=== PATIENT | female | born 1950 | race Caucasian/White ===

== ENCOUNTER 2016-12-28 10:54 | Outpatient (CLI) | payer MEDICARE ==
--- NOTE | 2016-12-29 17:11 | Mammography Report ---
DIGITAL SCREENING MAMMOGRAM: 12/28/2016 CLINICAL INDICATION: A 66-year-old with history of late childbearing for screening. COMPARISON: 12/2015, 12/2014, 11/2013, 11/2012, 01/2011, 09/2009. TECHNIQUE: Routine CC and MLO projections were obtained of the breasts. FINDINGS: Scattered fibroglandular tissue is present within the breasts. There are no dominant mass es, suspicious microcalcifications, or secondary signs of malignancy. In comparison to the previous studies, there are no significant changes. ASSESSMENT: NO MAMMOGRAPHIC EVIDENCE OF MALIGNANCY. NO SIGNIFICANT INTERVAL CHANGES. RECOMMENDATION: Screening mammography is recommended annually. BIRADS category 1 - negative. STANDARD QUALIFYING STATEMENTS 1. This examination was reviewed with the aid of Computed-Aided Detection (CAD). 2. A negative or benign imaging report should not delay biopsy if clinically suspicious findings are present. Consider surgical consultation if warranted. More than 5% of cancers are not identified b y imaging. 3. Dense breasts may obscure an underlying neoplasm. JOB #: [id number] EXT JOB #:[id number]
== END 2016-12-28 10:55 | disposition home or self-care (01) ==
LOC: DI 10:54
PROVIDERS: ATTEND Internal Medicine
DX: Z12.31 Encounter for screening mammogram for malignant neoplasm of breast (principal)
CPT/HCPCS: 77067

== ENCOUNTER 2018-01-18 11:43 | Outpatient (CLI) | payer MEDICARE ==
--- NOTE | 2018-01-18 17:11 | XRAY Report ---
Reason: R FINGER PAIN Procedure Date: 01/18/2018 Accession Number: [id number] / [id number] Procedure: XR - Finger(s) RT CPT Code: FULL RESULT: EXAM: RIGHT FIFTH FINGER DIGIT RADIOGRAPHY EXAM DATE: 01/18/2018 11:55 AM. CLINICAL HISTORY: R FINGER PAIN. No known injury. Fifth finger DIP joint pain. COMPARISON: None. TECHNIQUE: 3 views. FINDINGS: Bones: Normal. No fracture or bone lesion. Joints: Mild right proximal interphalangeal joint space narrowing. Mild to moderate right distal interphalangeal joint space narrowing with marginal osteophytes. Thin, elongated erosive changes along ulnar base of distal phalanx. Soft Tissues: Normal. No soft tissue swelling. IMPRESSION: 1. Osteoarthritic changes. Elongated erosive changes along ulnar base of right fifth finger distal phalanx could be related to subchondral cysts or erosive osteoarthritis. RADIA
== END 2018-01-18 11:44 | disposition home or self-care (01) ==
LOC: DI 11:43
PROVIDERS: ATTEND Internal Medicine
DX: M19.041 Primary osteoarthritis, right hand (principal)
CPT/HCPCS: 73140

== ENCOUNTER 2018-02-01 11:55 | Outpatient (CLI) | payer MEDICARE ==
--- NOTE | 2018-02-02 12:24 | Mammography Report ---
Reason: ANNUAL SCREENING Procedure Date: 02/01/2018 Accession Number: [id number] / [id number] Procedure: IRIS - Screening Mammo w/Richard CPT Code: FULL RESULT: EXAM: Screening Mammo w/Richard DATE: 02/01/2018 1:18 PM CLINICAL HISTORY: 67-year-old female with history of late childbearing and family history of breast cancer in an aunt at age 70 and a cousin at age 27 for screening. TECHNIQUE: Bilateral CC and MLO views were obtained. COMPARISON: 01/27/2017, 12/24/2015, 12/26/2014, 12/12/2013. FINDINGS: The breasts demonstrate scattered fibroglandular densities bilaterally. There are coarse typically benign calcifications in the left breast. No suspicious masses, clustered microcalcifications, or regions of architectural distortion are identified. IMPRESSION: Benign findings RECOMMENDATION: Routine annual screening unless otherwise clinically indicated. BIRADS CATEGORY 2: Benign findings STANDARD QUALIFYING STATEMENTS: 1. This examination was not reviewed with the aid of Computer-Aided Detection (CAD). 2. A negative or benign imaging report should not delay biopsy if clinically suspicious findings are present. Consider surgical consultation if warranted. More than 5% of cancers are not identified by imaging. 3. Dense breasts may obscure an underlying neoplasm. 4. This examination was reviewed with the aid of 3D breast imaging (tomosynthesis).
== END 2018-02-01 11:56 | disposition home or self-care (01) ==
LOC: DI 11:55
PROVIDERS: ATTEND Internal Medicine
DX: Z12.31 Encounter for screening mammogram for malignant neoplasm of breast (principal); Z80.3 Family history of malignant neoplasm of breast
CPT/HCPCS: 77063; 77067

== ENCOUNTER 2019-02-22 08:47 | Outpatient (CLI) | payer MEDICARE ==
--- NOTE | 2019-02-25 11:12 | Mammography Report ---
Reason: ROUTINE MAMMO Procedure Date: 02/22/2019 Accession Number: [id number] / [id number] Procedure: IRIS - Screening Mammo w/Richard CPT Code: Final Report FULL RESULT: EXAM: Screening Mammo w/Richard DATE: 02/22/2019 9:18 AM CLINICAL HISTORY: Screening encounter. History of late childbearing. TECHNIQUE: (B) - Bilateral CC and MLO views were obtained. COMPARISON: 02/01/2018 through 10/07/2009. PARENCHYMAL PATTERN: (A) - The breast(s) demonstrate(s) scattered fibroglandular densities. FINDINGS: There are coarse typically benign calcifications. There are no suspicious masses, calcifications, or areas of distortion. IMPRESSION: Benign findings. BI-RADS category 2. RECOMMENDATION: (ANNUAL) - Recommend routine annual screening mammography. BI-RADS CATEGORY: (2) - Benign Findings. STANDARD QUALIFYING STATEMENTS: 1. This examination was not reviewed with the aid of Computer-Aided Detection (CAD). 2. A negative or benign imaging report should not preclude biopsy if clinically suspicious findings are present. 3. Dense breasts may obscure an underlying neoplasm. 4. This examination was reviewed with the aid of 3D breast imaging (tomosynthesis).
== END 2019-02-22 08:48 | disposition home or self-care (01) ==
LOC: DI 08:47
PROVIDERS: ATTEND Internal Medicine
DX: Z12.31 Encounter for screening mammogram for malignant neoplasm of breast (principal)
CPT/HCPCS: 77063; 77067

== ENCOUNTER 2019-02-22 08:47 | Outpatient (CLI) | payer MEDICARE ==
--- NOTE | 2019-02-25 08:57 | DEXA Report ---
Reason: OSTEOPENIA Procedure Date: 02/22/2019 Accession Number: [id number] / [id number] Procedure: DEX - Dexa Spine and/or Hip CPT Code: Final Report FULL RESULT: EXAM: Dexa Spine and/or Hip DATE: 02/22/2019 9:29 AM CLINICAL HISTORY: OSTEOPENIA TECHNIQUE: Dual energy x-ray absorptiometry (DXA) was performed on a [employer] System. Regions measured are the AP Spine, femoral neck, and if needed forearm. COMPARISON: None. In accordance with the International Society for Clinical Densitometry (ISCD) guidelines, data from previous exams may be reanalyzed using current recommendations and techniques. This is done to allow a more accurate basis for comparison with the current study. FINDINGS: The data for the lumbar spine is as follows: BMD (g/cm/cm) T-SCORE Z-SCORE REGION L1 0.942 -1.6 0.2 L2 1.014 -1.5 0.2 L3 1.077 -1.0 0.7 L4 1.019 -1.5 0.2 TOTAL 1.017 -1.4 0.4 NOTE: All evaluable vertebrae are used for classification The data for the hip is as follows: BMD (g/cm/cm) T-SCORE Z-SCORE REGION Neck 0.677 -2.6 -0.9 TOTAL 0.742 -2.1 -0.6 NOTE: The femoral neck or total proximal femur, whichever is lowest, is used for classification. IMPRESSION: THE WHO CLASSIFICATION BASED ON THE INTERNATIONAL REFERENCE STANDARD IS OSTEOPOROSIS. THE FRACTURE RISK IS HIGH. RECOMMENDATION: Patients with diagnosis of osteoporosis or osteopenia should have regular bone mineral density assessment. For those eligible for Medicare, routine testing is allowed once every 2 years. Testing frequency can be increased for patients who have rapidly progressing disease or for those who are receiving medical therapy to restore bone mass. COMMENT: World Health Organization (WHO) definitions for osteoporosis and osteopenia: NORMAL BMD: T-score at -1.0 or higher, fracture risk is low OSTEOPENIA BMD: T-score between -1.0 and -2.5, fracture risk is increased. OSTEOPOROSIS BMD: T-score at -2.5 or lower, fracture risk is high. National Osteoporosis Foundation recommends: 1. Obtain adequate dietary calcium (at least 1200 mg per day) and vitamin D (400-800 international units per day). 2. Participate, as appropriate, in regular weightbearing and muscle-strengthening exercise. 3. Avoid tobacco use and reduce alcohol and caffeine intake. 4. For more detailed information see the website at www.NOF.org.
== END 2019-02-22 08:48 | disposition home or self-care (01) ==
LOC: DI 08:47
PROVIDERS: ATTEND Internal Medicine
DX: M81.0 Age-related osteoporosis without current pathological fracture (principal)
CPT/HCPCS: 77080

== ENCOUNTER 2020-05-06 12:33 | Outpatient (CLI) | payer MEDICARE ==
--- NOTE | 2020-05-07 06:25 | Mammography Report ---
BILATERAL DIGITAL SCREENING MAMMOGRAM 3D/2D: 05/06/2020 CLINICAL: Routine screening. Comparison is made to exams dated: 02/22/2019 mammogram, 02/01/2018 mammogram, and 12/28/2016 mammogr am - [facility]. There are scattered fibroglandular elements in both breasts. No significant masses, calcifications, or other findings are seen in either breast. There has been no significant interval change. IMPRESSION: NEGATIVE There is no mammographic evidence of malignancy. A 1 year screening mammogram is recommended. This exam was interpreted at Station ID: [id number]. NOTE: For mammograms, a report in lay terms will be sent to the patient. Approximately 15% of breast malignancies will not be visualized mammographically. In the management of a palpable breast mass, a negative mammogram must not discourage biopsy of a clinically suspicious lesion. Electronically Signed By: Berry Hardin M.D. ar/penrad:05/06/2020 15:50:42 ACR BI-RADS Category 1: Negative 3341F PARENCHYMAL PATTERN: (A) - The breast(s) demonstrate(s) scattered fibroglandular densities. BI-RADS CATEGORY: (1) - 1 RECOMMENDATION: (ANNUAL) - Recommend routine annual screening mammography. [id number] 1 year screening LATERALITY: (B)
== END 2020-05-06 12:34 | disposition home or self-care (01) ==
LOC: DI 12:33
PROVIDERS: ATTEND Internal Medicine
DX: Z12.31 Encounter for screening mammogram for malignant neoplasm of breast (principal)

== ENCOUNTER 2021-04-08 12:46 | Outpatient (CLI) | payer MEDICARE ==
--- NOTE | 2021-04-08 15:38 | DEXA Report ---
PROCEDURE: Dexa Spine and/or Hip INDICATIONS: OSTEOPOROSIS TECHNIQUE: Dual energy x-ray absorptiometry (DXA) was performed on a [employer] System. Regions measur ed are the AP Spine, femoral neck, and if needed forearm. COMPARISON: DEXA 02/22/2019 FINDINGS: Lumbar Spine: Bone Mineral Density 1.037 g/cm/cm,T score -1.2, compared to -1.4 Left Hip: Bone Mineral Density 0.738 g/cm/cm,T score -2.1, unchanged Left Femoral Neck: Bone Mineral Density 0.687 g/cm/cm, T score -2.5, compared to -2.6 (T score greater or equal to -1.0: NORMAL) (T score from -1.1 to -2.4: OSTEOPENIA) (T score less than or equal to -2.5 to: OSTEOPOROSIS) Impression: Minimal improved appearance of osteoporosis within the left femoral neck with stable mode rate osteopenia in the left hip. Slightly improved minimal osteopenia within the lumbar spine is note d. Patients with diagnosis of osteoporosis or osteopenia should have regular bone mineral density assess ment. For those eligible for Medicare, routine testing is allowed once every 2 years. Testing frequ ency can be increased for patients who have rapidly progressing disease or for those who are receivin g medical therapy to restore bone mass. Reviewed by: Leticia Watts MD on 04/08/2021 3:36 PM PST Approved by: Leticia Watts MD on 04/08/2021 3:36 PM PST Station ID: [id number]
== END 2021-04-08 12:47 | disposition home or self-care (01) ==
LOC: DI 12:46
PROVIDERS: ATTEND Internal Medicine
DX: M81.0 Age-related osteoporosis without current pathological fracture (principal)

== ENCOUNTER 2021-05-25 13:39 | Outpatient (CLI) | payer MEDICARE ==
--- NOTE | 2021-05-26 07:17 | Mammography Report ---
BILATERAL DIGITAL SCREENING MAMMOGRAM 3D/2D: 05/25/2021 CLINICAL: Routine screening. Family history of breast cancer. Comparison is made to exams dated: 05/06/2020 mammogram, 02/22/2019 mammogram, and 02/01/2018 mammogra m - [facility]. There are scattered fibroglandular elements in both breasts. No significant masses, calcifications, or other findings are seen in either breast. There has been no significant interval change. IMPRESSION: NEGATIVE There is no mammographic evidence of malignancy. A 1 year screening mammogram is recommended. This exam was interpreted at Station ID: [id number]. NOTE: For mammograms, a report in lay terms will be sent to the patient. Approximately 15% of breast malignancies will not be visualized mammographically. In the management of a palpable breast mass, a negative mammogram must not discourage biopsy of a clinically suspicious lesion. Electronically Signed By: Gamal Leonard M.D. ddp/penrad:05/25/2021 15:55:27 ACR BI-RADS Category 1: Negative 3341F PARENCHYMAL PATTERN: (A) - The breast(s) demonstrate(s) scattered fibroglandular densities. BI-RADS CATEGORY: (1) - 1 RECOMMENDATION: (ANNUAL) - Recommend routine annual screening mammography. [id number] 1 year screening LATERALITY: (B)
== END 2021-05-25 13:40 | disposition home or self-care (01) ==
LOC: DI.S 13:39
PROVIDERS: ATTEND Internal Medicine
DX: Z12.31 Encounter for screening mammogram for malignant neoplasm of breast (principal); Z80.3 Family history of malignant neoplasm of breast

== ENCOUNTER 2021-09-13 19:07 | Outpatient (CLI) | payer MEDICARE | END 2021-09-13 19:08 | disposition critical access hospital (66) | LOC: EMS 19:07 | DX: S00.11XA Contusion of right eyelid and periocular area, initial encounter (principal); S00.81XA Abrasion of other part of head, initial encounter; S60.416A Abrasion of right little finger, initial encounter; S60.410A Abrasion of right index finger, initial encounter; W01.0XXA Fall on same level from slipping, tripping and stumbling without subsequent striking against object, initial encounter; Y92.59 Other trade areas as the place of occurrence of the external cause | CPT/HCPCS: A0425; A0429 ==

== ENCOUNTER 2021-09-13 19:17 | Emergency (ER) | payer MEDICARE ==
--- NOTE | 2021-09-13 19:49 | ED Physician Documentation ---
PD HPI HEADACHE - Stated complaint Stated Complaint: GLF/CHEEK ABRASION - Chief complaint Chief Complaint: Trauma Hd/Nk - History obtained from History obtained from: Patient - Additional information Additional information: 71-year-old woman tripped in a parking lot and fell and hit her face. She has a significant headache which she describes as severe but no loss of consciousness. No anticoagulation. She has some scrapes on the right hand and face as well. Review of Systems Constitutional: denies: Fever, Chills Throat: reports: Dental pain / toothache. denies: Sore throat Cardiac: denies: Chest pain / pressure, Palpitations Respiratory: denies: Dyspnea, Cough PD PAST MEDICAL HISTORY - Present Medications Home Medications: Ambulatory Orders Medication Instructions Recorded Confirmed HYDROcod/ACETAM 5/325 [Howell 5/325] 1 - 2 tab PO Q6H PRN #15 tablet 09/13/21 - Allergies Allergies/Adverse Reactions: Allergies Allergy/AdvReac Type Severity Reaction Status Date / Time No Known Drug Allergies Allergy Verified 09/13/21 19:21 PD ED PE NORMAL - Vitals Vital signs reviewed: Yes - General General: Alert and oriented X 3, No acute distress - HEENT HEENT: PERRL, EOMI, Other (Teeth and facial bony structures are nontender, she is swollen with shallow abrasion over the right cheek and right supraorbital area laterally.) - Neck Neck: Supple, no meningeal sign, No bony TTP, C-Spine cleared by NEXUS criteria - Cardiac Cardiac: RRR, No murmur - Respiratory Respiratory: No respiratory distress, Clear bilaterally - Abdomen Abdomen: Non tender - Extremities Extremities: No tenderness to palpate, Normal ROM s pain, No edema, No calf tenderness / cord, Other (Right shoulder is nontender as is her right hand. She has an abrasion over the dorsum of the right fifth MCP that is nontender.) - Neuro Neuro: Alert and oriented X 3, Normal speech Eye Opening: Spontaneous Motor: Obeys Commands Verbal: Oriented GCS Score: 15 Results - Vitals Vitals: Vital Signs - 24 hr 09/13/21 09/13/21 19:21 21:55 Temperature 36.5 C 36.5 C Heart Rate 83 80 Respiratory 16 16 Rate Blood Pressure 150/80 H 138/80 H O2 Saturation 98 98 Oxygen O2 Source Room air - Rads (name of study) CT of the head and face: No intracranial hemorrhage injury, facial fractures as described in report. Radiology: Discussed with JIM sarkar read contemporaneously PD MEDICAL DECISION MAKING - ED course ED course: 71-year-old woman presents after a fall and has facial fractures and concern for head injury. No findings of head injury on CT. For the facial fractures, I do not think these will be operative but certainly nothing that needs urgent intervention. She was given nasal precautions and will follow up with OMFS. Departure - Departure Disposition: 01 Home, Self Care Clinical Impression: Facial fracture Condition: Good Record reviewed to determine appropriate education?: Yes Instructions: ED Fx Face Follow-Up: Franck Latham DDS [Provider Admit Priv/Credential] - Prescriptions: HYDROcod/ACETAM 5/325 [Howell 5/325] 1 - 2 tab PO Q6H PRN #15 tablet PRN Reason: Pain Comments: I sent your prescription electronically to [facility]. Follow-up with the facial surgeon with the copy of the CAT scan on CD., Call his office for an appointment tomorrow. I am prescribing a short course of narcotic pain medication for you. These are potentially dangerous and addictive medications that should be used carefully. These medications may constipate you. Take an huat-wqm-ewtqpmw stool softener (docusate) twice daily with plenty of water while taking these medications. If you go 24 hours without a bowel movement, take tzll-trx-isrwlxu miralax, per package instructions. Do not drink or drive while taking these medications. If you received narcotic or sedating medications while in the emergency department, do not drive for 24 hours. Store this medication in a safe, secure place and out of reach of children. It is a violation of federal law to give or sell this medication to another person or to use in a manner other than prescribed. The ED will not refill narcotic prescriptions, including prescriptions lost or stolen. To dispose of unwanted medications: 1. [facility] [address] in [place] has a medication drop box. They accept prescription medications (in pill form) Monday through Monday 9:00 a.m. to 5:00 p.m. 2. The [facility] [employer] accepts prescription medications (in pill form only) for disposal year round. Call for more inf ormation. 3. Contact the [facility] for the next [facility] sponsored prescription drug collection event. , [phone], or [phone]; Note that many narcotic pain relievers also contain Tylenol/acetaminophen. Please ensure that your total dose of acetaminophen from all sources does not exceed 3 g (3000 mg) per day. Discharge Date/Time: 09/13/21 21:55
[2021-09-13] MEDS ORDERED: HYDROcod/ACETAM 5/325 MG TABLET PO STA (19:50)
--- NOTE | 2021-09-13 20:29 | CT Report ---
PROCEDURE: HEAD WO INDICATIONS: head inj TECHNIQUE: Noncontrast 4.5 mm thick angled axial sections acquired from the foramen magnum to the vertex. For r adiation dose reduction, the following was used: automated exposure control, adjustment of mA and/or kV according to patient size. COMPARISON: None. FINDINGS: Image quality: Excellent. CSF spaces: There is mild cerebral volume loss with prominence of the ventricles and sulci. Basal ci sterns are patent. No extra-axial fluid collections. Brain: No intracranial hemorrhage, mass, or mass effect. Maguire-white matter interface is preserved. T here are subcortical and periventricular white matter hypodensities consistent with mild chronic smal l vessel ischemic changes. Skull and face: Calvarium appears intact. There is a suspected mildly displaced fracture of the inf erior wall the right orbit. There is also a suspected mildly displaced fracture of the lateral wall t he right maxillary sinus. Right periorbital soft tissue swelling is present. The globes appear intact . Sinuses: Visualized sinuses demonstrate a small air-fluid level in the right maxillary sinus. There is also mild mucosal thickening in the right maxillary sinus. Mastoid air cells are clear. IMPRESSION: 1. No acute intracranial abnormality. 2. Right periorbital soft tissue swelling with suspected mildly displaced fracture of the inferior or bital wall. Recommend further evaluation with a facial bone CT. Findings discussed Dr. Dempsey on 09/13/2021 at 8:23 PM. Reviewed by: Gamal Baxter MD on 09/13/2021 8:27 PM PDT Approved by: Gamal Baxter MD on 09/13/2021 8:27 PM PDT Station ID: [id number]
[2021-09-13] MEDS ORDERED: HYDROcod/ACET 5/325 Prepack 4 PO STA (21:38)
--- NOTE | 2021-09-13 21:51 | CT Report ---
PROCEDURE: MAXILLOFACIAL WO INDICATIONS: facial injry, abn head ct TECHNIQUE: Noncontrast 1.5 mm thick axial images acquired from the mandible through the frontal sinuses, with co cely and sagittal reformatting. For radiation dose reduction, the following was used: automated ex posure control, adjustment of mA and/or kV according to patient size. COMPARISON: Concurrent head CT 09/13/2021. FINDINGS: Image quality: There is metallic streak artifact from patient's dental hardware limiting evaluation. Bones and teeth: There is a mildly comminuted fracture of the inferior wall of the right orbit anter iorly. Fracture extends to the inferolateral foramen. No evidence of extraocular muscle herniation. T here is also mildly displaced fractures of the right lateral maxillary sinus wall. There is a mildly comminuted fracture of the anterior nasal spine of the maxilla. Nasal bones and sep melida are intact. Visualized portions of the mandible demonstrate no fractures or subluxation. Zygoma tic arches are intact. Pterygoid plates are intact. Visualized portions of the skull base and audit ory canals are intact. Sinuses: There is moderate fluid opacification of the right maxillary sinus with an air-fluid level a s well as mucosal thickening. There is mild mucosal thickening within the ethmoid air cells. Mastoid air cells are aerated. Soft tissues: There is right periorbital soft tissue swelling. The globes appear intact. No retrobulb ar fluid collections within the orbits. Vascular: Visualized vascular structures appear normal in the absence of contrast. IMPRESSION: 1. Mild comminuted right inferior orbital wall fracture. No evidence of extraocular muscle herniation . Fracture involves the infraorbital foramen. 2. Mildly displaced fractures of the lateral wall of the right maxillary sinus. 3. Mildly comminuted fracture of the anterior nasal spine of the maxilla. 4. Air-fluid levels in the right maxillary sinus with partial fluid opacification. Findings discussed with Dr. Dempsey on 09/13/2021 at 9:45 PM. Reviewed by: Gamal Baxter MD on 09/13/2021 9:50 PM PDT Approved by: Gamal Baxter MD on 09/13/2021 9:50 PM PDT Station ID: [id number]
[2021-09-13 21:57] VITALS: BP 138/80
== END 2021-09-13 21:55 | disposition home or self-care (01) ==
LOC: EDUNIT# → ED 19:17
DX: S02.31XA Fracture of orbital floor, right side, initial encounter for closed fracture (principal); S02.841A Fracture of lateral orbital wall, right side, initial encounter for closed fracture; S02.2XXA Fracture of nasal bones, initial encounter for closed fracture; W01.0XXA Fall on same level from slipping, tripping and stumbling without subsequent striking against object, initial encounter; Y92.481 Parking lot as the place of occurrence of the external cause
CPT/HCPCS: 70450; 70486; 99284; A9270

== ENCOUNTER 2022-02-24 10:00 | Outpatient (CLI) | payer MEDICARE ==
--- NOTE | 2022-02-24 16:28 | XRAY Report ---
PROCEDURE: Hand 3 View LT INDICATIONS: LEFT HAND PAIN TECHNIQUE: 3 views of the hand(s) acquired. COMPARISON: Arthritic changes as above. None FINDINGS: Bones: No fractures or dislocations. No suspicious bony lesions. None there is mild diffuse osteop enia. Mild to moderate IP degenerative narrowing. Very minimal periarticular osteophytes. No definiti ve erosions. Radiocarpal narrowing is present. Soft tissues: No suspicious soft tissue calcifications. IMPRESSION: Reviewed by: Leticia Watts MD on 02/24/2022 4:27 PM PST Approved by: Leticia Watts MD on 02/24/2022 4:27 PM PST Station ID: [id number]
== END 2022-02-24 10:01 | disposition home or self-care (01) ==
LOC: DI 10:00
PROVIDERS: ATTEND Physician Assistant Surgical
DX: M19.042 Primary osteoarthritis, left hand (principal)

== ENCOUNTER 2022-03-25 08:00 | Outpatient (CLI) | payer MEDICARE ==
[2022-03-25 16:23] LABS: BASOPHILS # (AUTO) 0.1 10^3/uL (0.0-0.1); BASOPHILS % (AUTO) 0.5 %; EOSINOPHILS # (AUTO) 0.3 10^3/uL (0.0-0.7); EOSINOPHILS % (AUTO) 2.9 %; HCT - HEMATOCRIT 39.8 % (37.0-47.0); HGB - HEMOGLOBIN 12.6 g/dL (12.0-16.0); LYMPHOCYTES # (AUTO) 1.5 10^3/uL (1.5-3.5); LYMPHOCYTES % (AUTO) 13.5 %; MEAN CORPUSCULAR HEMOGLOBIN 28.5 pg (27.0-31.0); MEAN CORPUSCULAR HGB CONC 31.7 g/dL (32.0-36.0); MEAN PLATELET VOLUME 10.1 fL (7.9-10.8); MONOCYTES # (AUTO) 0.9 10^3/uL (0.0-1.0); MONOCYTES % (AUTO) 8.2 %; NEUTROPHILS # (AUTO) 8.1 10^3/uL (1.5-6.6); NEUTROPHILS % (AUTO) 74.5 %; PLT - PLATELET COUNT 313 10^3/uL (130-450); RED BLOOD COUNT 4.42 10^6/uL (4.20-5.40); RED CELL DISTRIBUTION WIDTH 13.5 % (12.0-15.0); WHITE BLOOD COUNT 10.9 x10^3/uL (4.8-10.8)
[2022-03-25 16:57] LABS: ALBUMIN 4.2 g/dL (3.2-5.5); ALBUMIN/GLOBULIN RATIO 1.4 (1.0-2.2); ALKALINE PHOSPHATASE 82 IU/L (42-121); ALT ALANINE AMINOTRANSFERASE 24 IU/L (10-60); AST ASPARTATE AMINOTRANSFERASE 21 IU/L (10-42); BILIRUBIN,TOTAL 0.6 mg/dL (0.2-1.0); BUN - BLOOD UREA NITROGEN 19 mg/dL (6-20); CALCIUM 9.1 mg/dL (8.5-10.3); CARBON DIOXIDE - CO2 28 mmol/L (21-32); CHLORIDE 104 mmol/L (101-111); CHOL/HDL RATIO 3.9 (<4.4); CHOLESTEROL 223 mg/dL; CREATININE 0.8 mg/dL (0.4-1.0); GFR - MDRD 71 (>89); GLUCOSE 100 mg/dL (70-100); HDL CHOLESTEROL 57 mg/dL; LDL CHOLESTEROL,CALCULATED 142 mg/dL; LDL/HDL RATIO 2.5 (<4.4); POTASSIUM 3.7 mmol/L (3.5-5.0); SODIUM 140 mmol/L (135-145); TOTAL PROTEIN 7.2 g/dL (6.7-8.2); TRIGLYCERIDES 120 mg/dL; VLDL CHOLESTEROL 24 mg/dL
== END 2022-03-25 23:59 | disposition home or self-care (01) ==
LOC: LAB.R 08:00
PROVIDERS: ATTEND Internal Medicine
DX: Z00.00 Encounter for general adult medical examination without abnormal findings (principal); R05.1 Acute cough; F41.9 Anxiety disorder, unspecified; H26.9 Unspecified cataract; E55.9 Vitamin D deficiency, unspecified; F32.A Depression, unspecified; E78.5 Hyperlipidemia, unspecified; M19.90 Unspecified osteoarthritis, unspecified site; M81.0 Age-related osteoporosis without current pathological fracture; R00.2 Palpitations
CPT/HCPCS: 80053; 80061; 82306; 83721; 83735; 84443; 85025

== ENCOUNTER 2022-05-24 13:49 | Outpatient (CLI) | payer MEDICARE ==
--- NOTE | 2022-05-24 16:45 | DEXA Report ---
PROCEDURE: Dexa Spine and/or Hip INDICATIONS: OSTEOPOROSIS TECHNIQUE: Dual energy x-ray absorptiometry (DXA) was performed on a [employer] System. Regions measur ed are the AP Spine, femoral neck, and if needed forearm. COMPARISON: DEXA, 04/08/2021. FINDINGS: Lumbar Spine: Bone Mineral Density 1.014 g/cm/cm,T score -1.4, osteopenia Left Femoral Neck: Bone Mineral Density 0.682 g/cm/cm, T score -2.6, osteoporosis Left Hip: Bone Mineral Density 0.738 g/cm/cm,T score -2.1, osteopenia (T score greater or equal to -1.0: NORMAL) (T score from -1.1 to -2.4: OSTEOPENIA) (T score less than or equal to -2.5 to: OSTEOPOROSIS) Impression: 1. Based on WHO criteria, the patient has osteoporosis. 2. Compared to the last exam, the patient's bone mineral density in lumbar spine and left hip are not significantly changed. Patients with diagnosis of osteoporosis or osteopenia should have regular bone mineral density assess ment. For those eligible for Medicare, routine testing is allowed once every 2 years. Testing frequ ency can be increased for patients who have rapidly progressing disease or for those who are receivin g medical therapy to restore bone mass. Reviewed by: Mason Stark MD on 05/24/2022 4:43 PM PST Approved by: Mason Stark MD on 05/24/2022 4:43 PM PST Station ID: [id number]
== END 2022-05-24 13:50 | disposition home or self-care (01) ==
LOC: DI 13:49
PROVIDERS: ATTEND Internal Medicine
DX: M81.0 Age-related osteoporosis without current pathological fracture (principal)

== ENCOUNTER 2022-06-30 10:22 | Outpatient (CLI) | payer MEDICARE ==
--- NOTE | 2022-07-01 09:23 | Mammography Report ---
BILATERAL DIGITAL SCREENING MAMMOGRAM 3D/2D: 06/30/2022 CLINICAL: Routine screening. Family history of breast cancer. Comparison is made to exams dated: 05/25/2021 mammogram, 05/06/2020 mammogram, 02/22/2019 mammogram, and 02/01/2018 mammogram - [facility]. There are scattered areas of fibroglandular density in both breasts (category b / 25%-50% glandular t issue). No significant masses, calcifications, or other findings are seen in either breast. There has been no significant interval change. IMPRESSION: NEGATIVE There is no mammographic evidence of malignancy. A 1 year screening mammogram is recommended. Based on the Tyrer Cuzick model (a risk assessment model) the patients lifetime risk is 7.0% and her 10 year risk is 5.2%. According to the ACR, ACS, and NCCN guidelines, an annual breast MRI exam deja g with mammogram is recommended if the patients lifetime risk is 20% or greater. This exam was interpreted at Station ID: [id number]. NOTE: For mammograms, a report in lay terms will be sent to the patient. Approximately 15% of breast malignancies will not be visualized mammographically. In the management of a palpable breast mass, a negative mammogram must not discourage biopsy of a clinically suspicious lesion. Electronically Signed By: Inder fong/hortensia:06/30/2022 11:47:16 letter sent: No_Letter ACR BI-RADS Category 1: Negative 3341F PARENCHYMAL PATTERN: (A) - The breast(s) demonstrate(s) scattered fibroglandular densities. BI-RADS CATEGORY: (1) - 1 Mammogram [id number] 1 year screening LATERALITY: (B)
== END 2022-06-30 10:23 | disposition home or self-care (01) ==
LOC: DI.S 10:22
DX: Z12.31 Encounter for screening mammogram for malignant neoplasm of breast (principal); Z80.3 Family history of malignant neoplasm of breast

== ENCOUNTER 2022-08-09 10:57 | Day surgery (SDC) | payer MEDICARE ==
--- NOTE | 2022-08-09 09:54 | ANESTHESIA ---
Pre-Anesthesia VS, & Labs - Diagnosis screening - Procedure colonoscopy Height: 5 ft 6 in - NPO >8 hours - Is Patient ?: No - Lab Results Lab results reviewed: Yes Home Medications and Allergies Home Medications: Ambulatory Orders Buspirone HCl 7.5 mg PO BID 08/08/22 Cholecalciferol (Vitamin D3) [Vitamin D3] 1,250 mcg PO DAILY 08/08/22 Fluoxetine HCl [Prozac] 20 mg PO DAILY 08/08/22 LORazepam [Ativan] 0.5 mg PO BID PRN 08/08/22 Zolpidem [Ambien] 5 mg PO HS PRN 08/08/22 Buspirone HCl 7.5 mg PO BID 08/08/22 Cholecalciferol (Vitamin D3) [Vitamin D3] 1,250 mcg PO DAILY 08/08/22 Fluoxetine HCl [Prozac] 20 mg PO DAILY 08/08/22 LORazepam [Ativan] 0.5 mg PO BID PRN 08/08/22 Zolpidem [Ambien] 5 mg PO HS PRN 08/08/22 Allergies/Adverse Reactions: Allergies Allergy/AdvReac Type Severity Reaction Status Date / Time No Known Drug Allergies Allergy Verified 09/13/21 19:21 Anes History & Medical History - Anesthetic History Anesthesia Complications: reports: No previous complications Family history of Anesthesia Complications: Denies Family history of Malignant Hyperthermia: Denies - Medical History Musculoskeletal: reports: Other (L shoulder pain) Smoking Status: Current some day smoker Psychosocial: reports: No issues indicated History of Cancer?: No Exam General: Alert, Oriented x3, Cooperative Dental: WNL Mouth Openin Fingerbreadth Neck Mobility: Normal Mallampati classification: II Thyromental Distance: 4-6 cm Respiratory: Lungs clear, Normal breath sounds, No respiratory distress, Other (scratchy throat from allergies recently) Cardiovascular: Regular rate Neurological: Normal speech Mental/Cognitive Status: Alert/Oriented X3, Normal for patient Cognitive Status: Within normal limits Plan Anesthesia Type: Total IV Consent for Procedure(s) Verified and Reviewed: Yes Code Status: Attempt Resuscitation ASA classification: 2-Mild systemic disease Is this case an emergency?: No
[~2022-08-09 10:57] MED LIST: PROPOFOL 500 MG/50 ML 500 MG/50 ML VIAL ONE
[2022-08-09] MEDS ORDERED: MIDAZOLAM 2 MG/2 ML VIAL ONE (11:12)
[2022-08-09] MEDS ORDERED: LACTATED RINGERS 1,000 ML IV ONE (11:20)
[2022-08-09] MEDS ORDERED: LACTATED RINGERS 700 ML IV ONE (12:08)
--- NOTE | 2022-08-09 12:34 | ANESTHESIA POST OP EVALUATION ---
Anesthesia Post Eval - Post Anesthesia Eval Vitals: Last Vital Signs Temp 36.6 C 08/09/22 12:32 Pulse 68 08/09/22 12:32 Resp 16 08/09/22 12:32 BP 112/70 08/09/22 12:32 Pulse Ox 99 08/09/22 12:32 O2 Flow Rate CV Function Including HR & BP: Stable Pain Control: Satisfactory Nausea & Vomiting: Negative Mental Status: Baseline Respiratory Status: Airway Patent Hydration Status: Satisfactory Anesthesia Complications: None
[2022-08-09 12:50] VITALS: BP 108/68
== END 2022-08-09 10:58 | disposition home or self-care (01) ==
LOC: SDS 10:57
PROVIDERS: ATTEND Surgery
DX: Z12.11 Encounter for screening for malignant neoplasm of colon (principal); K64.9 Unspecified hemorrhoids; K57.30 Diverticulosis of large intestine without perforation or abscess without bleeding
CPT/HCPCS: G0121; J7120

== ENCOUNTER 2023-02-02 11:51 | Outpatient (CLI) | payer MEDICARE ==
--- NOTE | 2023-02-02 12:34 | XRAY Report ---
PROCEDURE: Chest 2 View X-Ray INDICATIONS: CHRONIC COUGH TECHNIQUE: 2 views of the chest were acquired. COMPARISON: Chest radiographs 10/01/2014. FINDINGS: Surgical changes and devices: None. Lungs and pleura: No pleural effusions or pneumothorax. Lungs are clear. Mediastinum: Mediastinal contours appear normal. Heart size is normal. Bones and chest wall: No suspicious bony lesions. Overlying soft tissues appear unremarkable. IMPRESSION: No acute cardiopulmonary process. Reviewed by: Berry Hardin MD on 02/02/2023 12:33 PM PST Approved by: Berry Hardin MD on 02/02/2023 12:33 PM [facility] Station ID: [id number]
== END 2023-02-02 11:52 | disposition home or self-care (01) ==
LOC: DI 11:51
PROVIDERS: ATTEND Internal Medicine
DX: R05.3 Chronic cough (principal)

== ENCOUNTER 2023-07-03 12:47 | Outpatient (CLI) | payer MEDICARE ==
--- NOTE | 2023-07-04 09:25 | Mammography Report ---
BILATERAL DIGITAL SCREENING MAMMOGRAM 3D/2D: 07/03/2023 CLINICAL: Routine screening. Family history of breast cancer. Comparison is made to exams dated: 06/30/2022 mammogram, 05/25/2021 mammogram, and 05/06/2020 mammogram - [facility]. There are scattered areas of fibroglandular density in both breasts (category b / 25%-50% glandular t issue). No significant masses, calcifications, or other findings are seen in either breast. There has been no significant interval change. IMPRESSION: NEGATIVE There is no mammographic evidence of malignancy. A 1 year screening mammogram is recommended. Based on the Tyrer Cuzick model (a risk assessment model) the patient's lifetime risk is 6.5% and her 10 year risk is 5.4%. According to the ACR, ACS, and NCCN guidelines, an annual breast MRI exam deja g with mammogram is recommended if the patient's lifetime risk is 20% or greater. This exam was interpreted at Station ID: [id number]. NOTE: For mammograms, a report in lay terms will be sent to the patient. Approximately 15% of breast malignancies will not be visualized mammographically. In the management of a palpable breast mass, a negative mammogram must not discourage biopsy of a clinically suspicious lesion. Electronically Signed By: Verito mo/hortensia:07/03/2023 16:47:30 letter sent: No_Letter ACR BI-RADS Category 1: Negative 3341F PARENCHYMAL PATTERN: (A) - The breast(s) demonstrate(s) scattered fibroglandular densities. BI-RADS CATEGORY: (1) - 1 RECOMMENDATION: (ANNUAL) - Recommend routine annual screening mammography. [id number] 1 year screening LATERALITY: (B)
== END 2023-07-03 12:48 | disposition home or self-care (01) ==
LOC: DI.S 12:47
DX: Z12.31 Encounter for screening mammogram for malignant neoplasm of breast (principal); R92.323 Mammographic fibroglandular density, bilateral breasts; Z80.3 Family history of malignant neoplasm of breast